=== PATIENT | female | born 1975 ===

== ENCOUNTER 2021-08-19 14:00 | Inpatient (IN) | payer MEDICAID, OTHER ==
[~2021-08-19] VITALS: Ht 154.9 cm; Wt 110.3 kg
[2021-08-19 15:31] LABS: Basophils # (auto) 0 10 ^3/uL (0-0.2); Basophils % (auto) 0.5 % (0.0-2.0); Eosinophils # (auto) 0.2 10 ^3/uL (0-0.8); Hematocrit 26.7 % (36.0-46.0); Lymphocytes # (auto) 0.9 10 ^3/uL (0.4-5.4); Monocytes # (auto) 1.1 10 ^3/uL (0-1.3); Neutrophils # (auto) 3.6 10 ^3/uL (1.6-8.6); White Blood Cell 5.8 10^3/uL (4.4-10.8)
[2021-08-19 15:32] LABS: Eosinophils % (auto) 3.4 % (0.0-7.0); Hemoglobin 8.5 g/dL (12.2-16.2); Mean Corpuscular Hemoglobin 26.5 pg (28.0-32.0); Mean Corpuscular Hgb Conc. 31.7 g/dL (32.0-36.0); Mean Corpuscular Volume 83.5 fL (80.0-100.0); Neutrophils % (auto) 61.9 % (37.0-80.0); Nucleated Red Blood Cells % 0.2 %; Red Cell Distribution Width 19.8 % (11.8-14.3)
[2021-08-19 15:41] LABS: Albumin 2.4 g/dL (3.4-5.0); BUN/Creatinine Ratio 6.4; Calcium 7.2 mg/dL (8.5-10.1); Potassium 4.3 mmol/L (3.5-5.1)
[2021-08-19 15:43] LABS: Bilirubin, Total 0.8 mg/dL (0.2-1.0); Total Protein 6.4 g/dL (6.4-8.2)
[2021-08-19 16:02] LABS: Lymphocytes % (auto) 16.5 % (10.0-50.0); Monocytes % (auto) 17.7 % (0.0-12.0)
[2021-08-19] MEDS ORDERED: ASPirin 81 mg TAB PO ONE (19:15)
[2021-08-19] MEDS ORDERED: ASPirin 325 MG TAB PO ONE (21:15)
[2021-08-20] MEDS ORDERED: MORPHINE SULFATE INJECTION 2 MG/ML SYRG IV PRN
[2021-08-20] MEDS ORDERED: hydrALAZINE HCL 10 MG TAB PO PRN
[2021-08-20] MEDS ORDERED: ONDANSETRON HCL 4 MG/2 ML VIAL IV PRN
[2021-08-20 05:19] VITALS: BP 158/86
[2021-08-20] MEDS ORDERED: CALC0.25 PO (06:41)
[2021-08-20] MEDS ORDERED: AMLO-489 PO (06:41)
[2021-08-20] MEDS ORDERED: FURO40TA4 PO (06:41)
[2021-08-20] MEDS ORDERED: DEXTROSE (50%) 50ML SYRG IV PRN (09:15)
[2021-08-20] MEDS: FUROSEMIDE 100 MG/10ML VIAL IV SCH (09:19)
[2021-08-20] MEDS: FAMOTIDINE 20 MG TAB PO SCH (09:20)
[2021-08-20] MEDS: ASPirin-EC 81 mg tab PO SCH (09:20)
[2021-08-20 09:45] LABS: Eosinophils # (auto) 0.2 10 ^3/uL (0-0.8)
[2021-08-20 09:47] LABS: Basophils # (auto) 0.1 10 ^3/uL (0-0.2); Basophils % (auto) 0.8 % (0.0-2.0); Eosinophils % (auto) 2.1 % (0.0-7.0); Hematocrit 27.1 % (36.0-46.0); Hemoglobin 8.6 g/dL (12.2-16.2); Lymphocytes # (auto) 0.6 10 ^3/uL (0.4-5.4); Lymphocytes % (auto) 8.4 % (10.0-50.0); Mean Corpuscular Hemoglobin 26.7 pg (28.0-32.0); Mean Corpuscular Hgb Conc. 31.9 g/dL (32.0-36.0); Mean Corpuscular Volume 83.6 fL (80.0-100.0); Monocytes # (auto) 0.9 10 ^3/uL (0-1.3); Monocytes % (auto) 11.3 % (0.0-12.0); Neutrophils % (auto) 77.4 % (37.0-80.0); Nucleated Red Blood Cells % 0.1 %; Red Blood Cells 3.24 10^6/uL (4.0-5.20); Red Cell Distribution Width 19.4 % (11.8-14.3); White Blood Cell 7.8 10^3/uL (4.4-10.8)
[2021-08-20 09:54] VITALS: BP 143/75
[2021-08-20 09:55] LABS: Calcium 7.3 mg/dL (8.5-10.1); Potassium 4.8 mmol/L (3.5-5.1)
[2021-08-20 10:03] LABS: BUN/Creatinine Ratio 6.6
[2021-08-20] MEDS: ACETAMINOPHEN 325 MG TAB PO PRN (10:06)
[2021-08-20] MEDS: ACCU-CHEK COMFORT CURVE STRIP VI SCH ×3 (12:13→21:33)
[2021-08-20] MEDS: InsuLIN REG 1unit/0.01ml Soln (100units/ml) SC SCH ×3 (12:14→21:34)
[2021-08-20 13:00] VITALS: BP 144/77
[2021-08-20 17:54] VITALS: BP 140/79
[2021-08-20] MEDS: CARVEDILOL 3.125 MG TAB PO SCH (21:33)
[2021-08-20 22:00] VITALS: BP 132/70
[2021-08-20] MEDS ORDERED: ENOXAPARIN SOD 120 MG/0.8 ML SYRINGE SC ONE (23:30)
[2021-08-21 05:27] VITALS: BP 125/70
[2021-08-21] MEDS: InsuLIN REG 1unit/0.01ml Soln (100units/ml) SC SCH ×4 (06:10→21:38)
[2021-08-21] MEDS: ACCU-CHEK COMFORT CURVE STRIP VI SCH ×4 (06:11→21:38)
[2021-08-21] MEDS ORDERED: SODIUM CHL 0.9% 1000 ML BAG XX ONE (07:00)
[2021-08-21 07:45] LABS: Calcium 6.9 mg/dL (8.5-10.1); Potassium 4.9 mmol/L (3.5-5.1)
[2021-08-21 07:52] LABS: % Iron Saturation 9.7 % (15-50)
[2021-08-21 09:00] VITALS: BP 107/69
[2021-08-21] MEDS: CARVEDILOL 3.125 MG TAB PO SCH ×2 (09:50→21:38)
[2021-08-21] MEDS: ASPirin-EC 81 mg tab PO SCH (09:51)
[2021-08-21] MEDS: FUROSEMIDE 100 MG/10ML VIAL IV SCH (09:51)
[2021-08-21] MEDS: FAMOTIDINE 20 MG TAB PO SCH (09:53)
[2021-08-21] MEDS: SODIUM FERR GLUC 62.5MG/5ML 125 MG in SODIUM CHL 0.9% 100 ML IV SCH (12:57)
[2021-08-21 13:00] VITALS: BP 142/80
[2021-08-21 14:16] LABS: Hemoglobin 7.9 g/dL (12.2-16.2)
[2021-08-21 14:18] LABS: Hematocrit 24.3 % (36.0-46.0)
[2021-08-21] MEDS: HYDROcodone-ACET 5/325MG TAB PO PRN ×2 (16:21→22:40)
[2021-08-21 17:00] VITALS: BP 139/71
[2021-08-21 17:57] LABS: % Iron Saturation 7.3 % (15-50)
[2021-08-21] MEDS: EPOETIN ALFA-EPBX 10,000 UNIT/1ML VIAL SC SCH (21:00)
[2021-08-21 22:00] VITALS: BP 152/77
[2021-08-22 05:00] VITALS: BP 138/69
[2021-08-22] MEDS: InsuLIN REG 1unit/0.01ml Soln (100units/ml) SC SCH ×4 (06:06→22:00)
[2021-08-22] MEDS: ACCU-CHEK COMFORT CURVE STRIP VI SCH ×4 (06:07→22:17)
[2021-08-22 07:00] LABS: Basophils # (auto) 0 10 ^3/uL (0-0.2); Basophils % (auto) 0.5 % (0.0-2.0); Eosinophils # (auto) 0.2 10 ^3/uL (0-0.8); Hemoglobin 7.6 g/dL (12.2-16.2); Mean Corpuscular Hemoglobin 26.4 pg (28.0-32.0); Neutrophils # (auto) 5.5 10 ^3/uL (1.6-8.6); White Blood Cell 7.2 10^3/uL (4.4-10.8)
[2021-08-22 07:04] LABS: Eosinophils % (auto) 2.2 % (0.0-7.0); Hematocrit 23.9 % (36.0-46.0); Lymphocytes # (auto) 0.9 10 ^3/uL (0.4-5.4); Lymphocytes % (auto) 12.3 % (10.0-50.0); Mean Corpuscular Hgb Conc. 31.6 g/dL (32.0-36.0); Mean Corpuscular Volume 83.4 fL (80.0-100.0); Monocytes # (auto) 0.6 10 ^3/uL (0-1.3); Monocytes % (auto) 8.5 % (0.0-12.0); Neutrophils % (auto) 76.5 % (37.0-80.0); Nucleated Red Blood Cells % 0.4 %; Red Blood Cells 2.87 10^6/uL (4.0-5.20); Red Cell Distribution Width 19.5 % (11.8-14.3)
[2021-08-22 07:09] LABS: Calcium 6.8 mg/dL (8.5-10.1)
[2021-08-22 09:00] VITALS: BP 130/67
[2021-08-22] MEDS: FUROSEMIDE 100 MG/10ML VIAL IV SCH (09:38)
[2021-08-22 09:39] LABS: Hepatitis B Surface Antibody Negative (Negative)
[2021-08-22] MEDS: FAMOTIDINE 20 MG TAB PO SCH (09:39)
[2021-08-22] MEDS: CARVEDILOL 3.125 MG TAB PO SCH ×2 (09:39→22:16)
[2021-08-22] MEDS: ASPirin-EC 81 mg tab PO SCH (09:39)
[2021-08-22 10:15] LABS: Hepatitis A Total Antibody Positive (Negative)
[2021-08-22 13:04] VITALS: BP 130/72
[2021-08-22] MEDS: SODIUM FERR GLUC 62.5MG/5ML 125 MG in SODIUM CHL 0.9% 100 ML IV SCH (14:00)
[2021-08-22 15:04] LABS: Hepatitis C Antibody Negative (Negative)
[2021-08-22] MEDS ORDERED: INSREGI SC (15:28)
[2021-08-22] MEDS ORDERED: CAR3125T PO (15:28)
[2021-08-22 17:00] VITALS: BP 128/74
[2021-08-22 22:00] VITALS: BP 124/67
[2021-08-22] MEDS: ACETAMINOPHEN 325 MG TAB PO PRN (22:57)
[2021-08-23 05:00] VITALS: BP 113/62
[2021-08-23] MEDS: ACCU-CHEK COMFORT CURVE STRIP VI SCH ×4 (06:28→22:45)
[2021-08-23] MEDS: InsuLIN REG 1unit/0.01ml Soln (100units/ml) SC SCH ×4 (06:28→22:48)
[2021-08-23 09:00] VITALS: BP 123/76
[2021-08-23] MEDS: FUROSEMIDE 100 MG/10ML VIAL IV SCH (10:05)
[2021-08-23] MEDS: CARVEDILOL 3.125 MG TAB PO SCH ×2 (10:05→22:44)
[2021-08-23] MEDS: FAMOTIDINE 20 MG TAB PO SCH (10:06)
[2021-08-23] MEDS: ASPirin-EC 81 mg tab PO SCH (10:06)
[2021-08-23] MEDS: EPOETIN ALFA-EPBX 10,000 UNIT/1ML VIAL SC SCH (10:06)
[2021-08-23 13:00] VITALS: BP 123/76
[2021-08-23] MEDS: SODIUM FERR GLUC 62.5MG/5ML 125 MG in SODIUM CHL 0.9% 100 ML IV SCH (13:58)
[2021-08-23 15:43] VITALS: BP 121/71
[2021-08-23] MEDS: ACETAMINOPHEN 325 MG TAB PO PRN (16:29)
[2021-08-23 17:00] VITALS: BP 105/53
[2021-08-23 22:00] VITALS: BP 122/65
[2021-08-24 05:00] VITALS: BP 124/64
[2021-08-24] MEDS: InsuLIN REG 1unit/0.01ml Soln (100units/ml) SC SCH ×4 (06:40→22:00)
[2021-08-24] MEDS: ACCU-CHEK COMFORT CURVE STRIP VI SCH ×4 (06:40→22:08)
[2021-08-24 09:00] VITALS: BP 112/69
[2021-08-24] MEDS: FUROSEMIDE 100 MG/10ML VIAL IV SCH ×2 (11:58→14:31)
[2021-08-24] MEDS: ASPirin-EC 81 mg tab PO SCH (11:59)
[2021-08-24] MEDS: FAMOTIDINE 20 MG TAB PO SCH (11:59)
[2021-08-24] MEDS: CARVEDILOL 3.125 MG TAB PO SCH ×2 (11:59→22:09)
[2021-08-24 13:00] VITALS: BP 102/59
[2021-08-24 17:00] VITALS: BP 16/64
[2021-08-24] MEDS ORDERED: HEPARIN SODIUM (PORCINE) 5000 UNITS/ML 1ML VIAL IV ONE (17:30)
[2021-08-24] MEDS ORDERED: SODIUM CHL 0.9% 1000 ML BAG XX ONE (18:30)
[2021-08-24 22:00] VITALS: BP 114/54
[2021-08-25] MEDS: ACETAMINOPHEN 325 MG TAB PO PRN (04:01)
[2021-08-25 04:37] VITALS: BP 128/73
[2021-08-25 05:37] LABS: Basophils # (auto) 0 10 ^3/uL (0-0.2); Eosinophils # (auto) 0.1 10 ^3/uL (0-0.8); Eosinophils % (auto) 1.3 % (0.0-7.0); Hemoglobin 7.3 g/dL (12.2-16.2); Lymphocytes # (auto) 0.7 10 ^3/uL (0.4-5.4); Red Cell Distribution Width 19.3 % (11.8-14.3)
[2021-08-25 05:38] LABS: Potassium 4.9 mmol/L (3.5-5.1)
[2021-08-25 05:40] LABS: Basophils % (auto) 0.4 % (0.0-2.0); Hematocrit 22.9 % (36.0-46.0); Lymphocytes % (auto) 10.9 % (10.0-50.0); Mean Corpuscular Hemoglobin 26.4 pg (28.0-32.0); Mean Corpuscular Hgb Conc. 31.8 g/dL (32.0-36.0); Monocytes # (auto) 0.4 10 ^3/uL (0-1.3); Monocytes % (auto) 6.2 % (0.0-12.0); Neutrophils # (auto) 5.4 10 ^3/uL (1.6-8.6); Neutrophils % (auto) 81.2 % (37.0-80.0); Nucleated Red Blood Cells % 1.3 %; Red Blood Cells 2.76 10^6/uL (4.0-5.20); White Blood Cell 6.7 10^3/uL (4.4-10.8)
[2021-08-25 05:45] LABS: BUN/Creatinine Ratio 7.6; Calcium 6.6 mg/dL (8.5-10.1)
[2021-08-25] MEDS: InsuLIN REG 1unit/0.01ml Soln (100units/ml) SC SCH ×3 (06:24→22:00)
[2021-08-25] MEDS: ACCU-CHEK COMFORT CURVE STRIP VI SCH ×2 (06:24→21:37)
[2021-08-25 09:06] VITALS: BP 124/67
[2021-08-25] MEDS: CARVEDILOL 3.125 MG TAB PO SCH ×2 (09:40→22:00)
[2021-08-25] MEDS: ASPirin-EC 81 mg tab PO SCH (09:41)
[2021-08-25] MEDS: FAMOTIDINE 20 MG TAB PO SCH (09:41)
[2021-08-25] MEDS: FUROSEMIDE 100 MG/10ML VIAL IV SCH (09:42)
[2021-08-25 22:00] VITALS: BP 122/56
[2021-08-26 04:34] VITALS: BP 133/64
[2021-08-26] MEDS: ACCU-CHEK COMFORT CURVE STRIP VI SCH ×4 (06:41→21:00)
[2021-08-26] MEDS: InsuLIN REG 1unit/0.01ml Soln (100units/ml) SC SCH ×4 (06:42→21:09)
[2021-08-26] MEDS: ASPirin-EC 81 mg tab PO SCH (09:25)
[2021-08-26] MEDS: FUROSEMIDE 100 MG/10ML VIAL IV SCH (09:25)
[2021-08-26] MEDS: CARVEDILOL 3.125 MG TAB PO SCH ×2 (09:26→21:01)
[2021-08-26] MEDS: FAMOTIDINE 20 MG TAB PO SCH (09:26)
[2021-08-26] MEDS ORDERED: CALCIUM GLUC 1,000mg/50ml-NS 50 ML IV ONE (12:00)
[2021-08-26] MEDS: CALCIUM GLUC 1,000mg/50ml-NS 50 ML IV SCH ×2 (14:36→19:30)
[2021-08-26 15:09] VITALS: BP 124/63
[2021-08-26 17:00] VITALS: BP 118/68
[2021-08-26 22:00] VITALS: BP 136/72
[2021-08-27 05:00] VITALS: BP 123/79
[2021-08-27] MEDS: InsuLIN REG 1unit/0.01ml Soln (100units/ml) SC SCH ×4 (06:19→21:02)
[2021-08-27] MEDS: ACCU-CHEK COMFORT CURVE STRIP VI SCH ×4 (06:20→21:03)
[2021-08-27] MEDS ORDERED: SODIUM CHL 0.9% 1000 ML BAG XX ONE (07:00)
[2021-08-27 07:27] LABS: Basophils # (auto) 0 10 ^3/uL (0-0.2); Basophils % (auto) 0.4 % (0.0-2.0); Eosinophils # (auto) 0.1 10 ^3/uL (0-0.8)
[2021-08-27 07:31] LABS: Eosinophils % (auto) 1.3 % (0.0-7.0); Hematocrit 23.5 % (36.0-46.0); Hemoglobin 7.5 g/dL (12.2-16.2); Lymphocytes % (auto) 14.4 % (10.0-50.0); Mean Corpuscular Hemoglobin 26.7 pg (28.0-32.0); Mean Corpuscular Volume 83.3 fL (80.0-100.0); Monocytes # (auto) 0.3 10 ^3/uL (0-1.3); Monocytes % (auto) 4.7 % (0.0-12.0); Neutrophils # (auto) 5.4 10 ^3/uL (1.6-8.6); Neutrophils % (auto) 79.2 % (37.0-80.0); Nucleated Red Blood Cells % 1.4 %; Red Blood Cells 2.82 10^6/uL (4.0-5.20); Red Cell Distribution Width 19.8 % (11.8-14.3); White Blood Cell 6.8 10^3/uL (4.4-10.8)
[2021-08-27 09:00] VITALS: BP 124/66
[2021-08-27] MEDS: FUROSEMIDE 100 MG/10ML VIAL IV SCH (11:30)
[2021-08-27] MEDS: CARVEDILOL 3.125 MG TAB PO SCH ×2 (11:30→21:03)
[2021-08-27] MEDS: FAMOTIDINE 20 MG TAB PO SCH (11:30)
[2021-08-27] MEDS: ASPirin-EC 81 mg tab PO SCH (11:30)
[2021-08-27 13:00] VITALS: BP 161/79
[2021-08-27] MEDS ORDERED: ERGOCALCIFEROL 50,000 UNIT(1.25MG) CAP PO SCH (13:00)
[2021-08-27 17:00] VITALS: BP 138/72
[2021-08-27] MEDS ORDERED: EPOETIN ALFA-EPBX 10,000 UNIT/1ML VIAL SC ONE (21:00)
[2021-08-27 21:03] VITALS: BP 128/69
[2021-08-28] MEDS: InsuLIN REG 1unit/0.01ml Soln (100units/ml) SC SCH ×3 (06:04→17:00)
[2021-08-28] MEDS: ACCU-CHEK COMFORT CURVE STRIP VI SCH ×3 (06:04→17:00)
[2021-08-28 09:00] VITALS: BP 116/66
[2021-08-28] MEDS ORDERED: CALCIUM GLUC 1,000mg/50ml-NS 50 ML IV ONE (10:45)
[2021-08-28] MEDS: FUROSEMIDE 100 MG/10ML VIAL IV SCH (10:55)
[2021-08-28] MEDS: CARVEDILOL 3.125 MG TAB PO SCH (10:55)
[2021-08-28] MEDS: ASPirin-EC 81 mg tab PO SCH (10:56)
[2021-08-28] MEDS: FAMOTIDINE 20 MG TAB PO SCH (10:56)
[2021-08-28 13:00] VITALS: BP 103/59
[2021-08-28 17:00] VITALS: BP 109/59
[2021-08-29] MEDS ORDERED: SODIUM CHL 0.9% 1000 ML BAG XX ONE (07:00)
[2021-08-29] MEDS ORDERED: EPOETIN ALFA-EPBX 10,000 UNIT/1ML VIAL SC ONE (21:00)
== END 2021-08-28 20:45 | DRG 425 ==
LOC: ER 14:00 → TELE 23:57 → TELE-CENTR 08-20 05:01
PROVIDERS: ADMIT Nurse Practitioner Family; ATTEND Nurse Practitioner Family
PROC: 5A1D70Z Performance of Urinary Filtration, Intermittent, Less than 6 Hours Per Day (ICD-10-PCS; 2021-08-21)
PROC: 5A1D70Z Performance of Urinary Filtration, Intermittent, Less than 6 Hours Per Day (ICD-10-PCS; 2021-08-22)
PROC: 5A1D70Z Performance of Urinary Filtration, Intermittent, Less than 6 Hours Per Day (ICD-10-PCS; principal; 2021-08-24)
PROC: 5A1D70Z Performance of Urinary Filtration, Intermittent, Less than 6 Hours Per Day (ICD-10-PCS; 2021-08-27)
DX: E87.70 Fluid overload, unspecified (principal); I13.2 Hypertensive heart and chronic kidney disease with heart failure and with stage 5 chronic kidney disease, or end stage renal disease; E44.1 Mild protein-calorie malnutrition; I27.20 Pulmonary hypertension, unspecified; D63.1 Anemia in chronic kidney disease; E83.51 Hypocalcemia; E88.09 Other disorders of plasma-protein metabolism, not elsewhere classified; E11.22 Type 2 diabetes mellitus with diabetic chronic kidney disease; E66.01 Morbid (severe) obesity due to excess calories; Z20.822 Contact with and (suspected) exposure to COVID-19; G89.29 Other chronic pain; Z83.3 Family history of diabetes mellitus; Z99.2 Dependence on renal dialysis; Z68.42 Body mass index [BMI] 45.0-49.9, adult; I50.32 Chronic diastolic (congestive) heart failure
CPT/HCPCS: 36415; 71045; 76775; 80048; 80053; 82306; 82728; 82962; 83036; 83540; 83550; 83970; 84100; 84484; 84702; 85014; 85018; 85025; 86704; 86706; 86708; 86803; 87081; 87340; 87426; 87493; 90935; 93005; 93306; 93970; 96365; 96372; 97110; 97163; 97530; G0378; J1642; J1815; J2405